=== PATIENT | male | born 1985 | race Hispanic/Latino ===

== ENCOUNTER 2020-02-25 08:19 | Emergency (ER) | payer BC, OTHER ==
[2020-02-25] MEDS ORDERED: HYDROcodone 5MG/APAP 325MG 1 EA TAB PO ONE (08:30)
[2020-02-25] MEDS ORDERED: TETANUS,DIPHTHERIA,PERTUSSIS 1 EA SYG IM ONE (08:30)
--- NOTE | 2020-02-25 08:35 | ED.PDOC ---
History of Present Illness - General Chief Complaint: Upper Extremity Injury Time Seen by Provider: 02/25/20 08:20 Source: patient, RN notes reviewed, Vital Signs reviewed Exam Limitations: no limitations - History of Present Illness Initial Comments: 35 yo RHD male comes in after his hand was caught between a bobcat. complains of hand and wrist and forearm pain. no other injuries. only body part crushed was hand. Unsure when last tetanus was. Denies numbness or tingling. Occurred: just prior to arrival Pain - Upper Extremity: moderate: Hand, right Improving Factors: immobilization Worsening Factors: movement Allergies/Adverse Reactions: Allergies NO KNOWN ALLERGY Allergy (Verified 02/25/20 08:28) Home Medications: Ambulatory Orders Acetaminophen W/ Codeine [Tylenol W/ CODEINE #3] 1 ea PO Q6H PRN #12 ea 02/25/20 Ibuprofen 800 mg PO TID PRN #30 tab 02/25/20 Lisinopril 20 mg PO DAILY 02/25/20 Past Medical History (General) - Patient Medical History Hx Seizures: No Hx Stroke: No Hx Dementia: No Hx Asthma: No Hx of COPD: No Hx Cardiac Disorders: No Hx Congestive Heart Failure: No Hx Pacemaker: No Hx Hypertension: Yes Hx Thyroid Disease: No Hx Diabetes: No Hx Gastroesophageal Reflux: No Hx Renal Disease: No Hx Cancer: No Hx of HIV: No Hx Hepatitis B: No Hx Hepatitis C: No Hx MRSA: No Hx Other PMH: No Family Medical History - Family History Mother Family History: Unknown Physical Exam - Physical Exam General Appearance: Alert, Comfortable, No apparent distress, Well Developed, Well Groomed, Well Hydrated, Well Nourished Eyes, Ears, Nose, Throat Exam: PERRL/EOMI, normal ENT inspection Neck: non-tender, full range of motion, supple, normal inspection Cardiovascular/Respiratory: regular rate, rhythm, no M/R/G, normal peripheral pulses, no JVD, normal breath sounds, no respiratory distress Abdominal Exam: non-tender, no organomegaly Back Exam: normal inspection Shoulder Exam: normal inspection, non-tender, no evidence of injury, normal ROM Elbow/Forearm Exam: normal inspection, non-tender, no evidence of injury, normal ROM Wrist Exam: normal inspection, non-tender, no evidence of injury, normal ROM Hand Exam: bone tenderness, ecchymosis, swelling Neuro/Tendon: normal sensation, normal motor functions, normal tendon functions, responds to pain, no evidence tendon injury Mental Status: alert, oriented x 3 Skin Exam: warm/dry, other - superifical laceration aprx 2 cm across dorsum of right hand. Comments: Symmetrically palpable radial and ulnar pulses. Capillary refill <2 seconds to all digits. 2 point discrimination intact Intact motor function of the radial, median and ulnar nerves demonstrated by strength of extension of the isolated distal joint of the index finger, hand abalone sheller, and spreading of the 2nd through 5th digits. Intact recurrent median nerve as demonstrated by ability to move thumb fully through opposition, abduction and flexion. No snuffbox tenderness. Progress - Progress Progress: 02/25/20 08:36 patient given tetanus IM. 02/25/20 09:11 Patient placed in ulnar gutter splint as we do not need to limit supination or pronation. Plan to dispo home, Still pending official radiology read. 02/25/20 09:26 disposition delayed due to still pending radiology read. 02/25/20 09:30 The data reviewed when caring for this patient included: nurse notes, prior records, etc. The history and assessments from nurses notes were reviewed and considered, and the patient's home medication list was also reviewed and considered. My assessment and the results of testing completed here in the ED were discussed with the patient/family. All questions were answered, and they express understanding of my assessment and the plan. They have been instructed to return if their symptoms worsen, and have been asked to follow up with their primary care physician to recheck today's presenting complaint. Strict return precautions given. I have reviewed medication, benefits, alternatives and side effects. Patient decided to proceed with medication.patient discharged home in stable condition. Yesica Galindo DO #[id number] - EKG/XRAY/CT XRAY: hand - 3rd nondsiplaced metacarpal midshaft fracture/ Xray Comments: wrsit/forearm: no acute fractures. Departure - Departure Clinical Impression: Metacarpal bone fracture Qualifiers: Encounter type: initial encounter Metacarpal bone: third Fracture type: closed Metacarpal location: shaft Fracture alignment: nondisplaced Laterality: right Qualified Code(s): S62.352A - Nondisplaced fracture of shaft of third metacarpal bone, right hand, initial encounter for closed fracture Time of Disposition: 08:54 Disposition: Discharge to Home or Self Care Condition: Fair Departure Forms: ED Discharge - Pt. Copy, Patient Portal Self Enrollment Instructions: DI for Arm Pain, Boxer's Fracture, Hand Fracture (DC) Referrals: Tash Elaine MD [Primary Care Provider] - 1-2 Weeks Prescriptions: Ibuprofen 800 mg PO TID PRN #30 tab PRN Reason: Pain Acetaminophen W/ Codeine [Tylenol W/ CODEINE #3] 1 ea PO Q6H PRN #12 ea PRN Reason: Pain Home Medications: Ambulatory Orders Acetaminophen W/ Codeine [Tylenol W/ CODEINE #3] 1 ea PO Q6H PRN #12 ea 02/25/20 Ibuprofen 800 mg PO TID PRN #30 tab 02/25/20 Lisinopril 20 mg PO DAILY 02/25/20 Comments: Lacho Posada MD Orthopedist [id number] [facility]
[2020-02-25 08:38] VITALS: O2SAT 96
--- NOTE | 2020-02-25 09:28 | RAD ---
2 radiographs right forearm. 3 radiographs right wrist. 3 radiographs right hand Indication: hand injury Comparison: None Impression: No acute fracture of the right forearm or right wrist. If there is persistent anatomic snuffbox tenderness, repeat wrist imaging to include a scaphoid view is recommended in one week to evaluate for occult scaphoid fracture. Soft tissue swelling dorsum of the hand with a transverse/oblique nondisplaced fracture of the midshaft of the third metacarpal. No advanced osteoarthritis. Electronically signed by: Alex Kaufman MD 02/25/2020 9:26 AM CDT
[2020-02-25 09:51] VITALS: BP 119/81; TEMP 97.3
== END 2020-02-25 09:51 | disposition home or self-care (01) ==
LOC: ER 08:19
DX: S62.352A Nondisplaced fracture of shaft of third metacarpal bone, right hand, initial encounter for closed fracture (principal); I10 Essential (primary) hypertension; W31.89XA Contact with other specified machinery, initial encounter; Y92.89 Other specified places as the place of occurrence of the external cause; Y99.0 Civilian activity done for income or pay